=== PATIENT | male | born 1990 | race Caucasian/White ===

== ENCOUNTER 2019-01-03 15:11 | Emergency (ER) | payer OTHER ==
[~2019-01-03] VITALS: Ht 190.5 cm; Wt 83.5 kg
[2019-01-03 15:14] VITALS: BP 145/78
[2019-01-03] MEDS ORDERED: LIDOCAINE 1%-EPI 1:100,000 20 ML VIAL ONE (15:17)
--- NOTE | 2019-01-03 15:21 | NUR ---
PT BIB [facility] [employer] WITH A C/O TWO TASER BARBS STILL ATTACHED TO PT THAT NEED TO BE REMOVED. PT ARRIVED IN HANDCUFFS AND IS REFUSING BLOOD DRAW, URINE, AND ANY OTHER TEST OTHER THAN THE KEV[facility] REMOVAL.
--- NOTE | 2019-01-03 15:26 | NUR ---
[facility] SET UP AT THE BEDSIDE WITH LIDO W/EPI.
--- NOTE | 2019-01-03 16:46 | NUR ---
BARBS WERE REMOVED AND PT D/C'D INTO [employer] CUSTODY.
== END 2019-01-03 16:47 ==
LOC: ER 15:14
DX: S40.851A Superficial foreign body of right upper arm, initial encounter (principal); W86.8XXA Exposure to other electric current, initial encounter; Y93.89 Activity, other specified; Y92.89 Other specified places as the place of occurrence of the external cause; Y99.8 Other external cause status
CPT/HCPCS: 10120; 99284; A4606; J3490; A6402